=== PATIENT | male | born 1985 | race American Indian/Alaskan Native ===

== ENCOUNTER 2023-03-04 10:23 | Emergency (ER) | payer MEDICAID ==
[~2023-03-04] VITALS: Ht 185.4 cm; Wt 125.9 kg
[2023-03-04 10:57] LABS: MEAN CORPUSCULAR HGB CONC 33.8 g/dL (33.0-36.5)
[2023-03-04 10:59] LABS: BASOPHILS # (AUTO) 0.1 X10'3 (0-0.2); BASOPHILS % (AUTO) 1.3 % (0-1); EOSINOPHILS # (AUTO) 0.1 X10'3 (0-0.9); EOSINOPHILS % (AUTO) 0.7 % (0-6); HEMATOCRIT 44.8 % (42.0-52.0); HEMOGLOBIN 15.1 g/dl (14.0-17.9); LYMPHOCYTES # (AUTO) 2.2 X10'3 (1.1-4.8); LYMPHOCYTES % (AUTO) 22.3 % (21-51); MEAN CORPUSCULAR HEMOGLOBIN 28.9 PG (27.0-31.0); MEAN CORPUSCULAR VOLUME 85.5 FL (78-98); MONOCYTES # (AUTO) 0.8 X10'3 (0-0.9); MONOCYTES % (AUTO) 8.5 % (2-12); NEUTROPHILS # (AUTO) 6.7 X10'3 (1.8-7.7); NEUTROPHILS % (AUTO) 67.2 % (42-75); PLATELET COUNT 315 X10'3 (140-440); RED BLOOD COUNT 5.24 X10'6 (4.70-6.10); RED CELL DISTRIBUTION WIDTH 14.2 % (11.5-14.5)
[2023-03-04 11:13] LABS: ALANINE AMINOTRANSFERASE 106 U/L (12-78); ALBUMIN 4.3 G/DL (3.4-5.0); ALKALINE PHOSPHATASE 86 IU/L (46-116); ANION GAP 15 (8-16); ASPARTATE AMINO TRANSFERASE 56 U/L (10-37); BILIRUBIN,TOTAL 1.1 MG/DL (0.1-1.0); BLOOD UREA NITROGEN 20 MG/DL (7-18); BUN/CREATININE RATIO 16.9 (10.0-20.0); CALCIUM 9.2 MG/DL (8.5-10.1); CHLORIDE 97 MMOL/L (99-107); CREATININE 1.18 MG/DL (0.60-1.10); GLUCOSE 106 MG/DL (70-104); POTASSIUM 4.2 MMOL/L (3.5-5.1); SODIUM 132 MMOL/L (135-145); TOTAL CARBON DIOXIDE 20.5 MMOL/L (24-32); TOTAL PROTEIN 8.6 G/DL (6.4-8.2); eCRCL 98 ML/MIN; eGFR 70 ML/MIN
[2023-03-04] MEDS ORDERED: mag hydrox/Alum hydrox/simeth 30ml oral suspension PO ONE (11:25)
[2023-03-04 11:26] LABS: PRO BRAIN NATRIURETIC PEPTIDE < 30 PG/ML (0-125)
--- NOTE | 2023-03-04 11:40 | NUR ---
RN CALLED PHARM D/T OFFIRMEV NOT SHOWING IN OMNICELL. PER PHARM TRY AGAIN AND IF NOT SHOWING COME PICK IT UP.
--- NOTE | 2023-03-04 11:41 | NUR ---
YUDITHIRMNUSRAT STILL NOT SHOWING IN OMNICELL. RN WILL HAVE STAFF GO GOVERNMENT RELATIONS ANALYST.
--- NOTE | 2023-03-04 11:47 | NUR ---
COMPUTER IN RM 3 HAS DAMAGED SCREEN PT SHIFT START. PER FERNANDO WORK ORD HAS BEEN PLACED. RN OBTAINED WOW.
--- NOTE | 2023-03-04 12:02 | NUR ---
RN CALLED [facility] TO LET THEM KNOW HE WILL BE DISCHARGED SOON AND THEY AGREED TO SEND TRANSPORTATION FOR HIM NOW.
--- NOTE | 2023-03-04 12:02 | NUR ---
[phone].
[2023-03-04 12:58] VITALS: TEMP 97.8
--- NOTE | 2023-03-04 13:02 | NUR ---
PER DAO NOVOA PT WAS NOT DC D/T HE STARTED C/O SEVERE ABD CRAMPING AND DR YOUNG NOTIFIED. RN WILL UPDATE DR YOUNG AND [facility] WILL BE CALLED BACK TO CONFIRM TRANSPORT ONCE PT IS DC.
--- NOTE | 2023-03-04 13:25 | NUR ---
RN NOTIFIED DR YOUNG PT HAVING ABD PAIN AND DIARRHEA. PER DR YOUNG HE WILL SEE PT.
[2023-03-04] MEDS ORDERED: acetaminophen 1,000mg/100ml IV 100 ML IV SCH (14:00)
[2023-03-04] MEDS ORDERED: CYCL-1 PO (14:53)
[2023-03-04] MEDS ORDERED: DICY10CA88 PO (14:53)
[2023-03-04] MEDS ORDERED: cyclobenzaprine 10mg tablet PO ONE (14:55)
[2023-03-04] MEDS ORDERED: dicyclomine 10 MG capsule PO ONE (14:55)
[2023-03-04 14:59] VITALS: BP 136/85; PULSE 85; RESP 13; O2SAT 98
== END 2023-03-04 15:12 | disposition home or self-care (01) ==
LOC: ER 10:23
DX: R07.89 Other chest pain (principal); E87.1 Hypo-osmolality and hyponatremia; E86.0 Dehydration; R74.01 Elevation of levels of liver transaminase levels; F15.90 Other stimulant use, unspecified, uncomplicated; Z88.6 Allergy status to analgesic agent
CPT/HCPCS: 71045; 80053; 83880; 84484; 85025; 93005; 96374; 99285; J0131